=== PATIENT | female | born 1950 | race American Indian/Alaskan Native ===

== ENCOUNTER 2016-12-28 19:47 | Emergency (ER) | payer MEDICARE ==
[2016-12-28 20:04] VITALS: BP 136/92; PULSE 91; RESP 20; TEMP 98.2; O2SAT 98
[2016-12-28 20:05] VITALS: BMI 35.0
--- NOTE | 2016-12-28 20:19 | ED PDOC ---
Arrival/HPI - General Chief Complaint: Allergic Reaction Time Seen by Provider: 12/28/16 20:09 Historian: Patient - History of Present Illness Narrative History of Present Illness (Text): 12/28/16 20:16 66 y/o female, pmh including htn/dm, nkda, c/o itching hives on the whole body x 2 days. Pt. stated that she has hives itching on and off for the past 2 days , relief with the benadryl but return back, no change in soap/clothing/detergent , no dizziness, no difficulty swallowing or drinking, no night sweat, no palpitation, no other medical or psychological complaints. Past Medical History - Provider Review Nursing Documentation Reviewed: Yes - Tetanus Immunization Tetanus Immunization: Unknown - Reproductive Menopause: Yes - Cardiac Hx Cardiac Disorders: Yes Hx Hypertension: Yes Other/Comment: DIABETES; HTN; - Pulmonary Hx Respiratory Disorders: No - Neurological Hx Neurological Disorder: No - HEENT Hx HEENT Disorder: No - Renal Hx Renal Disorder: No - Endocrine/Metabolic Hx Endocrine Disorders: Yes Hx Diabetes Mellitus Type 1: Yes - Hematological/Oncological Hx Blood Disorders: No - Integumentary Hx Dermatological Disorder: No - Musculoskeletal/Rheumatological Hx Musculoskeletal Disorders: No - Gastrointestinal Hx Gastrointestinal Disorders: No - Genitourinary/Gynecological Hx Genitourinary Disorders: No - Psychiatric Hx Psychophysiologic Disorder: No Hx Substance Use: No - Surgical History Other/Comment: LEFT LUMPECTOMY@40 YEARS AGO - Anesthesia Hx Anesthesia: No - Suicidal Assessment Feels Threatened In Home Enviroment: No Family/Social History - Physician Review Nursing Documentation Reviewed: Yes Family/Social History: Unknown Family HX Smoking Status: Never Smoked Hx Alcohol Use: No Hx Substance Use: No Hx Substance Use Treatment: No Allergies/Home Meds Allergies/Adverse Reactions: Allergies No Known Allergies Allergy (Unverified 01/07/15 19:44) Home Medications: Home Meds Medication Instructions Recorded Confirmed Lisinopril/Hydrochlorothiazide 01/07/15 01/07/15 [Lisinopril-Hydrochlorothiazide 12.5 mg-10 mg] Metformin Hydrochloride [Metformin] 500 mg PO 01/07/15 01/07/15 cloNIDine [clonidine HCl] 0.2 mg PO 01/07/15 01/07/15 Review of Systems - Review of Systems Constitutional: absent: Fatigue, Fevers Eyes: absent: Vision Changes ENT: absent: Hearing Changes Respiratory: absent: SOB, Cough, Sputum Cardiovascular: absent: Chest Pain Gastrointestinal: absent: Abdominal Pain, Nausea, Vomiting Musculoskeletal: absent: Arthralgias, Back Pain, Neck Pain, Joint Swelling Skin: Rash, Pruritis. absent: Skin Lesions, Laceration, Abscess, Ulcer, Cellulitis Neurological: absent: Headache, Dizziness, Focal Weakness, Gait Changes, Speech Changes, Facial Droop, Disequilibrium, Seizure Physical Exam Vital Signs Reviewed: Yes Vital Signs Temp Pulse Resp BP Pulse Ox 12/28/16 20:04 98.2 F 91 H 20 136/92 H 98 Temperature: Afebrile Blood Pressure: Hypertensive Pulse: Regular Respiratory Rate: Normal Appearance: Positive for: Well-Appearing, Non-Toxic, Comfortable Pain Distress: None Mental Status: Positive for: Alert and Oriented X 3 - Systems Exam Head: Present: Atraumatic, Normocephalic Pupils: Present: PERRL Extroacular Muscles: Present: EOMI Conjunctiva: Present: Normal Mouth: Present: Moist Mucous Membranes, Normal Lips, Normal Tounge, Normal Teeth Pharnyx: No: ERYTHEMA, EXUDATE, TONSILS ENLARGED, Peritonsilar Swelling, Uvular Deviation, Muffled/Hoarse Voice, Soft Palate/Uvular Edema Neck: Present: Normal Range of Motion Respiratory/Chest: Present: Clear to Auscultation, Good Air Exchange. No: Respiratory Distress, Accessory Muscle Use Cardiovascular: Present: Regular Rate and Rhythm, Normal S1, S2. No: Murmurs Abdomen: Present: Normal Bowel Sounds. No: Tenderness, Distention, Peritoneal Signs Back: Present: Normal Inspection Upper Extremity: Present: Normal Inspection. No: Cyanosis, Edema Lower Extremity: Present: Normal Inspection. No: Edema Neurological: Present: GCS=15, Speech Normal, Motor Func Grossly Intact, Gait Normal, Memory Normal Skin: Present: Warm, Dry, Rashes (there is resolving patchy blanchable hives approx. 2cm diameter with no visible central insect bite russ, no cellulitis or streaking, no bullseye or target signs, no angioedema or lip swelling. ), Normal Color Psychiatric: Present: Alert, Oriented x 3, Normal Insight, Normal Concentration Medical Decision Making ED Course and Treatment: 12/28/16 20:19 -prednisone, pepcid ordered. -Pt. took benadryl 50mg po prior to arrival. -Discharge home with benadryl, pepcid, prednisone, keep the skin cool and dry, avoid taking hot shower, wear loose clothings, follow up with your own pmd and dry cleaning manager for allergen panel test, return to the ER for any new or worsening signs or symptoms. - Medication Orders Current Medication Orders: Discontinued Medications Famotidine (Pepcid) 20 mg PO STAT STA Stop: 12/28/16 20:10 Prednisone (Prednisone Tab) 60 mg PO STAT ONE Stop: 12/28/16 20:10 - PA / SECRETARY SPECIALIST / Resident Statement / has reviewed & agrees with the documentation as recorded. Disposition/Present on Arrival - Present on Arrival Any Indicators Present on Arrival: No History of DVT/PE: No History of Uncontrolled Diabetes: No Urinary Catheter: No History of Decub. Ulcer: No History Surgical Site Infection Following: None - Disposition Have Diagnosis and Disposition been Completed?: Yes Diagnosis: Hives Disposition: HOME/ ROUTINE Disposition Time: 20:20 Patient Plan: Discharge Condition: GOOD Additional Instructions: Discharge home with benadryl, pepcid, prednisone, keep the skin cool and dry, avoid taking hot shower, wear loose clothings, follow up with your own pmd and dry cleaning manager for allergen panel test, return to the ER for any new or worsening signs or symptoms. Prescriptions: DiphenhydrAMINE [Benadryl] 50 mg PO QID PRN #20 cap PRN Reason: Other Famotidine [Pepcid] 20 mg PO BID #12 tab predniSONE [Prednisone] 2 tab PO DAILY #8 tab Referrals: [facility] at [facility] [place] [Outside] - Follow up with primary Miley Walker MD [Staff Provider] - Follow up with primary Forms: WORK NOTE
== END 2016-12-28 20:42 | disposition home or self-care (01) ==
LOC: ED 19:47
DX: L50.9 Urticaria, unspecified (principal); E10.9 Type 1 diabetes mellitus without complications; I10 Essential (primary) hypertension

== ENCOUNTER 2017-12-09 11:17 | Emergency (ER) | payer MEDICARE ==
[2017-12-09 11:34] VITALS: TEMP 98.7; BMI 36.0
--- NOTE | 2017-12-09 11:52 | ED PDOC ---
Arrival/HPI - General Time Seen by Provider: 12/09/17 11:31 Historian: Patient - History of Present Illness Narrative History of Present Illness (Text): you were treated in the ED today for hx of hypertension, diabetes, and you clarified that you ate some sausage which gives you reflux and now your having some epigastric discomfort which is going up the chest for about 1 day, but otherwise without any nausea/vomiting/headache/dizziness/difficulty breathing/ specific chest pain/abdomen pain/numbness/tingling/loss of limb function/pain with urination/travel/prior blood clots/prior cancer/hormonal use. 12/09/17 11:48 12/09/17 11:54 Time/Duration: 24 hours Symptom Onset: Gradual Symptom Course: Unchanged Quality: Aching Severity Level: 1 Activities at Onset: Rest Context: Sitting Past Medical History - Provider Review Nursing Documentation Reviewed: Yes - Travel History Have you recently traveled outside [place] w/in the past 3 mons?: No - Tetanus Immunization Tetanus Immunization: Unknown - Cardiac Hx Cardiac Disorders: Yes Hx Hypertension: Yes Other/Comment: DIABETES; HTN; - Pulmonary Hx Respiratory Disorders: No - Neurological Hx Neurological Disorder: No - HEENT Hx HEENT Disorder: No - Renal Hx Renal Disorder: No - Endocrine/Metabolic Hx Endocrine Disorders: Yes Hx Diabetes Mellitus Type 1: Yes - Hematological/Oncological Hx Blood Disorders: No - Integumentary Hx Dermatological Disorder: No - Musculoskeletal/Rheumatological Hx Musculoskeletal Disorders: No - Gastrointestinal Hx Gastrointestinal Disorders: No - Genitourinary/Gynecological Hx Genitourinary Disorders: No - Psychiatric Hx Psychophysiologic Disorder: No Hx Substance Use: No - Surgical History Other/Comment: LEFT LUMPECTOMY@40 YEARS AGO - Anesthesia Hx Anesthesia: No - Suicidal Assessment Feels Threatened In Home Enviroment: No Family/Social History - Physician Review Nursing Documentation Reviewed: Yes Family/Social History: No Known Family HX Smoking Status: Never Smoked Hx Alcohol Use: No Hx Substance Use: No Hx Substance Use Treatment: No Allergies/Home Meds Allergies/Adverse Reactions: Allergies No Known Allergies Allergy (Unverified 01/07/15 19:44) Home Medications: Home Meds Medication Instructions Recorded Confirmed Lisinopril/Hydrochlorothiazide 1 tab PO DAILY 01/07/15 12/09/17 [Lisinopril-Hydrochlorothiazide 12.5 mg-10 mg] Atorvastatin [Lipitor] 20 mg PO DAILY 12/09/17 12/09/17 Clonidine HCl [Catapres] 0.2 mg PO DAILY 12/09/17 12/09/17 MetFORMIN [glucOPHAGE] 1,000 mg PO BID 12/09/17 12/09/17 Review of Systems - Review of Systems Constitutional: Normal Eyes: Normal ENT: Normal Respiratory: Normal Cardiovascular: Normal Gastrointestinal: Other (epigastric discomfort/reflux) Genitourinary Female: Normal Musculoskeletal: Normal Skin: Normal Neurological: Normal Endocrine: Normal Hemo/Lymphatic: Normal Psychiatric: Normal Physical Exam Vital Signs Reviewed: Yes Vital Signs Temp Pulse Resp BP Pulse Ox 12/09/17 11:30 98.7 F 97 H 19 199/109 H 100 Temperature: Afebrile Blood Pressure: Hypertensive Pulse: Regular Respiratory Rate: Normal Appearance: Positive for: Well-Appearing, Non-Toxic, Comfortable Pain Distress: None Mental Status: Positive for: Alert and Oriented X 3 Finger Stick Blood Glucose: 122 - Systems Exam Head: Present: Atraumatic, Normocephalic Pupils: Present: PERRL Extroacular Muscles: Present: EOMI Conjunctiva: Present: Normal Ears: Present: Normal Mouth: Present: Moist Mucous Membranes Pharnyx: Present: Normal Nose (External): Present: Atraumatic Nose (Internal): Present: Normal Inspection Neck: Present: Normal Range of Motion Respiratory/Chest: Present: Clear to Auscultation, Good Air Exchange Cardiovascular: Present: Regular Rate and Rhythm Abdomen: No: Tenderness, Distention, Normal Bowel Sounds, Peritoneal Signs, Rebound, Guarding, McBurney's Point Tender, Rovsing's Sign Present, Hernias, Feeding Tubes, Ostomy Tubes, Mass/Organomegaly, Scars, Other Back: Present: Normal Inspection Upper Extremity: Present: Normal Inspection Lower Extremity: Present: Normal Inspection Neurological: Present: GCS=15, CN II-XII Intact, Speech Normal, Motor Func Grossly Intact Skin: Present: Warm, Normal Color Psychiatric: Present: Alert, Oriented x 3, Normal Insight, Normal Concentration Medical Decision Making ED Course and Treatment: 12/09/17 11:52 you were treated in the ED today for hx of hypertension, diabetes, and you clarified that you ate some sausage which gives you reflux and now your having some epigastric discomfort which is going up the chest for about 1 day, but otherwise without any nausea/vomiting/headache/dizziness/difficulty breathing/ specific chest pain/abdomen pain/numbness/tingling/loss of limb function/pain with urination/travel/prior blood clots/prior cancer/hormonal use. You were otherwise breathing easily, pink moist lips, smiling and talking easily, good strength/sensation, alert/oriented, walking easily, clear lungs, no abdomen tenderness, no fever temp 98.7, stable heart rate 97, stable breathing rate 19, excellent oxygen level 100% room air, elevated blood pressure 199/109 and repeat 190/98 which we recommend repeat in 2-3 days primary care office to determine further treatment, you have blood tests no infection count 4, stable blood level hemoglobin 13/platelets 239, stable chemistry, except mildly low potassium 3.5, heart blood test negative less than 0.01, lipase normal 154, urine test trace sign of infection leukocyte trace/nitrite negative, radiology chest xray initial no acute, ECG mildly fast sinus tachycardia 104, protonix anti-acid, observation done in the ED with improvement, counselled to eat foods with potassium daily, take daily anti-acid medication pepcid as directed, counselled to stay further for further testing and observation but you wanted to go home and cautioned for missed diagnosis/complications/ but you stated you wanted to followup with your primary care 1-2 days. 1. Recommend follow-up primary care 1-2 days to review symptoms, get final xray report, to get final urine culture test to determine further treatment as you had a trace sign of infection the urine today without any symptoms of urine discomfort, referral to cardiology and gastroenterology clinic to ensure further review of your symptoms. 4. If any worsening pain, fever, chills, nausea, vomiting, difficulty breathing, numbness, loss of limb function, pain with urination or any medical condition then return to the ED. 12/09/17 13:15 Reassessment Condition: Re-examined, Improved - Lab Interpretations Lab Results: 12/09/17 12:00 12/09/17 12:00 Lab Results 12/09/17 12:04: Urine Color Light yellow, Urine Appearance Clear, Urine pH 6.0, Ur Specific [place] 1.010, Urine Protein Negative, Urine Glucose (UA) Negative, Urine Ketones Negative, Urine Blood Negative, Urine Nitrate Negative, Urine Bilirubin Negative, Urine Urobilinogen 1.0 H, Ur Leukocyte Esterase Trace H, Urine RBC Negative, Urine WBC 0 - 2, Ur Epithelial Cells 0 - 2, Urine Bacteria Trace 12/09/17 12:00: Sodium 143, Potassium 3.5 L, Chloride 104, Carbon Dioxide 30, Anion Gap 13, BUN 12, Creatinine 0.9, Est GFR ( Amer) > 60, Est GFR (Non- Af Amer) > 60, Random Glucose 130 H, Calcium 10.1, Magnesium 1.8, Total Bilirubin 0.3, AST 21, ALT 25, Alkaline Phosphatase 55, Lactate Dehydrogenase 395, Total Creatine Kinase 145, Troponin I < 0.01, Total Protein 7.5, Albumin 3.9, Globulin 3.6, Albumin/Globulin Ratio 1.1, Lipase 154 12/09/17 12:00: PT 14.2 H, INR 1.23 H, APTT 28.6 12/09/17 12:00: WBC 4.0 L, RBC 4.59, Hgb 13.1, Hct 39.3, MCV 85.6, MCH 28.5, MCHC 33.3, RDW 12.9, Plt Count 239, MPV 10.6, Gran % 40.2 L, Lymph % (Auto) 48.3 H, [place] % (Auto) 5.4, Eos % (Auto) 5.4 H, Baso % (Auto) 0.7, Gran # 1.62, Lymph # (Auto) 2.0, [place] # (Auto) 0.2, Eos # (Auto) 0.2, Baso # (Auto) 0.03 I have reviewed the lab results: Yes - RAD Interpretation Radiology Orders: 12/09/17 11:46 CHEST PORTABLE [RAD] Stat Administrative Resources Associate: ED Physician (cxr no acute) - EKG Interpretation Interpreted by ED Physician: Yes (sinus tachycardia, flipped t waves avr, v1) Type: 12 lead EKG - Medication Orders Current Medication Orders: Discontinued Medications Pantoprazole Sodium (Protonix Inj) 80 mg IVP STAT STA Stop: 12/09/17 11:48 Last Admin: 12/09/17 12:18 Dose: 80 mg IVP Administration Document 12/09/17 12:18 OLIVIA (Rec: 12/09/17 12:18 OLIVIA [id number]) Charges for Administration # of IVP Administrations 1 Disposition/Present on Arrival - Present on Arrival Any Indicators Present on Arrival: No History of DVT/PE: No History of Uncontrolled Diabetes: No Urinary Catheter: No History Surgical Site Infection Following: None - Disposition Have Diagnosis and Disposition been Completed?: Yes Diagnosis: Gastritis, Epigastric abdominal pain Disposition Time: 13:13 Patient Plan: Discharge Condition: IMPROVED Discharge Instructions (ExitCare): Gastritis (DC) Additional Instructions: you were treated in the ED today for hx of hypertension, diabetes, and you clarified that you ate some sausage which gives you reflux and now your having some epigastric discomfort which is going up the chest for about 1 day, but otherwise without any nausea/vomiting/headache/dizziness/difficulty breathing/ specific chest pain/abdomen pain/numbness/tingling/loss of limb function/pain with urination/travel/prior blood clots/prior cancer/hormonal use. You were otherwise breathing easily, pink moist lips, smiling and talking easily, good strength/sensation, alert/oriented, walking easily, clear lungs, no abdomen tenderness, no fever temp 98.7, stable heart rate 97, stable breathing rate 19, excellent oxygen level 100% room air, elevated blood pressure 199/109 and repeat 190/98 which we recommend repeat in 2-3 days primary care office to determine further treatment, you have blood tests no infection count 4, stable blood level hemoglobin 13/platelets 239, stable chemistry, except mildly low potassium 3.5, heart blood test negative less than 0.01, lipase normal 154, urine test trace sign of infection leukocyte trace/nitrite negative, radiology chest xray initial no acute, ECG mildly fast sinus tachycardia 104, protonix anti-acid, observation done in the ED with improvement, counselled to eat foods with potassium daily, take daily anti-acid medication pepcid as directed, counselled to stay further for further testing and observation but you wanted to go home and cautioned for missed diagnosis/complications/ but you stated you wanted to followup with your primary care 1-2 days. 1. Recommend follow-up primary care 1-2 days to review symptoms, get final xray report, to get final urine culture test to determine further treatment as you had a trace sign of infection the urine today without any symptoms of urine discomfort, referral to cardiology and gastroenterology clinic to ensure further review of your symptoms. 4. If any worsening pain, fever, chills, nausea, vomiting, difficulty breathing, numbness, loss of limb function, pain with urination or any medical condition then return to the ED. Prescriptions: Famotidine [Pepcid] 20 mg PO DAILY 10 Days #10 tab
[2017-12-09 12:08] LABS: URINE BILIRUBIN NEGATIVE (NEGATIVE); URINE BLOOD NEGATIVE (NEGATIVE); URINE GLUCOSE (UA) NEGATIVE (NEGATIVE); URINE LEUKOCYTE ESTERASE TRACE Leu/uL (NEGATIVE); URINE NITRATE NEGATIVE (NEGATIVE); URINE PROTEIN NEGATIVE mg/dL (<30 mg/dL)
[2017-12-09 12:09] LABS: URINE APPEARANCE CLEAR (CLEAR); URINE COLOR LIGHT YELLOW (YELLOW)
[2017-12-09 12:19] LABS: URINE BACTERIA TRACE (NEG); URINE EPITHELIAL CELLS 0 - 2 /hpf (0-5); URINE RBC NEGATIVE /hpf (0-2); URINE WBC 0 - 2 /hpf (0-6)
[2017-12-09 12:29] LABS: BASO # 0.03 K/mm3 (0.0-2.0); BASO % 0.7 % (0.0-3.0); EOS # 0.2 (0.0-0.7); EOS % 5.4 % (1.5-5.0); GRAN # 1.62 (1.4-6.5); GRAN % 40.2 % (50.0-68.0); HEMOGLOBIN 13.1 g/dL (12.0-16.0); LYMPH % 48.3 % (22.0-35.0); MEAN CELL VOLUME 85.6 fl (80.0-105.0); MEAN CORPUSCULAR HEMOGLOBIN 28.5 pg (25.0-35.0); MEAN CORPUSCULAR HGB CONC 33.3 g/dl (31.0-37.0); MEAN PLATELET VOLUME 10.6 fl (7.0-11.0); MONO # 0.2 (0.1-0.6); MONO % 5.4 % (1.0-6.0); RBC 4.59 10^6/uL (3.5-6.1); RED CELL DISTRIBUTION WIDTH 12.9 % (11.5-14.5)
[2017-12-09 12:33] LABS: INR 1.23 (0.93-1.08); PARTIAL THROMBOPLASTIN TIME 28.6 Seconds (25.1-36.5); PROTHROMBIN TIME 14.2 SECONDS (9.4-12.5)
[2017-12-09 12:34] LABS: ALB/GLOB RATIO 1.1 (1.1-1.8); ALBUMIN 3.9 g/dL (3.0-4.8); ALT/SGPT 25 U/L (7-56); AST/SGOT 21 U/L (14-36); BLOOD UREA NITROGEN 12 mg/dL (7-21); CALCIUM 10.1 mg/dL (8.4-10.5); GFR AFRICAN-AMERICAN > 60; GFR NON-AFRICAN AMERICAN > 60; LIPASE 154 U/L (23-300); MAGNESIUM 1.8 mg/dL (1.7-2.2)
[2017-12-09 12:45] LABS: TROPONIN I < 0.01 ng/mL
[2017-12-09 13:25] VITALS: BP 175/88; PULSE 70; RESP 18; O2SAT 98
--- NOTE | 2017-12-09 14:03 | RAD ---
HISTORY: 67yoF, epigastric pain COMPARISON: No prior. FINDINGS: LUNGS: No active pulmonary disease. PLEURA: No significant pleural effusion identified, no pneumothorax apparent. CARDIOVASCULAR: Borderline/mild cardiomegaly OSSEOUS STRUCTURES: Mild multilevel degenerative spondylosis of the thoracic spine rhiannon the VISUALIZED UPPER ABDOMEN: Normal. OTHER FINDINGS: None. IMPRESSION: No active disease.
--- NOTE | 2017-12-10 12:44 | CARD ---
APPROVED REPORT EKG Measurement Heart [id number] <Conclusion> Sinus tachycardia Non Specific ST_T Changes.
== END 2017-12-09 13:39 | disposition home or self-care (01) ==
LOC: ED 11:17
DX: K29.70 Gastritis, unspecified, without bleeding (principal); I10 Essential (primary) hypertension; E11.9 Type 2 diabetes mellitus without complications
CPT/HCPCS: 71045; 80053; 81001; 82550; 83615; 83690; 83735; 84484; 85025; 85610; 85730; 87086; 93005; 96374; 99283; C9113